=== PATIENT | female | born 1980 | race Caucasian/White ===

== ENCOUNTER → 2017-01-06 | Outpatient (CLI) | payer BC ==
[~2017-01-06] MED LIST: DIFLUCAN PO; DOXYCYCLINE HY100 M1 PO; LEVAQUIN PO; MEDROL PO; NO MEDICATIONS; ORUDIS75 M1 PO
--- NOTE | ~2017-01-06 | US24 ---
[facility] A Service of [facility] RADIOLOGY TEXT RESULTS PATIENT: EMANI CARRILLO LOCATION: [facility] : 84 UNIT #: [id number] AGE: [address]: Madeline Whitley MD SEX: F ORDER DR: [id number] [facility] [address] [facility]. [place], [place] [address] [id number] O MR#: [id number] Acc #: [id number] NAME: EMANI CARRILLO. : 1980 SEX: F STUDY DATE/TIME: 01/06/2017 8:38 UNIT: [facility] ROOM: STUDY DESCRIPTION: US Breast Unilateral Attending Physician: Madeline Whitley M.D. Referring Physician: Madeline Whitley M.D. Ordering Physician: Madeline Whitley M.D. Primary Care Physician: Madeline Whitley M.D. MEDICAL IMAGING REPORT This report is preliminary unless electronic signature is present EXAM Right breast ultrasound. INDICATIONS Palpable abnormality in the right breast for the past week. PROCEDURE Tirado-scale imaging of the right breast in the area of palpable concern. COMPARISON Concurrently performed diagnostic mammogram. FINDINGS / IMPRESSION Refer to separately dictated diagnostic mammogram for workup, findings, and recommendations. BIRADS: 1 Negative Dictated by... Juan Miguel Colbert M.D. THIS IS AN ELECTRONICALLY VERIFIED REPORT Juan Miguel Colbert M.D. at 01/07/2017 7:00 AM Parvez TD: 01/06/2017 12:34 JOB #: [id number] MEDICAL IMAGING REPORT Page 1 of 1 COPY
--- NOTE | ~2017-01-06 | MY8 ---
[facility] A Service of [facility] RADIOLOGY TEXT RESULTS PATIENT: EMANI CARRILLO LOCATION: [facility] : 84 UNIT #: [id number] AGE: [address]: Madeline Whitley MD SEX: F ORDER DR: [id number] [id number] [facility]. [place], [place] [address] [id number] O MR#: [id number] Acc #: [id number] NAME: EMANI CARRILLO. : 1980 SEX: F STUDY DATE/TIME: 01/06/2017 8:06 UNIT: [facility] ROOM: STUDY DESCRIPTION: MY Mammogram Dx Dig Rt Attending Physician: Madeline Whitley M.D. Referring Physician: Madeline Whitley M.D. Ordering Physician: Madeline Whitley M.D. Primary Care Physician: Madeline Whitley M.D. MEDICAL IMAGING REPORT This report is preliminary unless electronic signature is present EXAM Digital diagnostic mammogram INDICATIONS Right breast pain and palpable nodule for the past week. PROCEDURE CC, MLO and true lateral views of the right breast obtained on a digital mammography unit. FDA-approved CAD device was utilized. COMPARISON None. FINDINGS Right breast shows heterogeneous fibroglandular density which could obscure a small mass. No mammographic abnormality in the upper right breast in the area of palpable concern. No dominant mass or suspicious calcification. There is no sonographic abnormality in the area of palpable concern on concurrently performed right breast ultrasound. IMPRESSION Negative right diagnostic mammogram and ultrasound. Recommend continued clinical followup. Patients over the age of 40 are entered into a reminder system with target due date for the next mammogram. A result letter will also be sent to the patient. BIRADS: 1 Negative [facility] A Service [facility] RADIOLOGY TEXT RESULTS PATIENT: EMANI CARRILLO LOCATION: [facility] : 84 UNIT #: [id number] AGE: [address]: Madeline Whitley MD SEX: F ORDER DR: Dictated by... Juan Miguel Colbert M.D. THIS IS AN ELECTRONICALLY VERIFIED REPORT Juan Miguel Colbert M.D. at 01/07/2017 7:00 AM ARMANDO/rae TD: 01/06/2017 12:10 JOB #: [id number] MEDICAL IMAGING REPORT Page 1 of 1 COPY
== END | disposition home or self-care (01) ==
LOC: CMAM 07:38
DX: N64.4 Mastodynia (principal); N91.2 Amenorrhea, unspecified
CPT/HCPCS: 76641; G0206